=== PATIENT | female | born 1930 | race Caucasian/White ===

== ENCOUNTER 2018-03-16 15:53 | Emergency (ER) | payer MEDICARE, OTHER ==
[~2018-03-16] VITALS: Ht 157.5 cm; Wt 41.4 kg
[~2018-03-16 15:53] MED LIST: AMIODARONE400 MG PO; AMITRIPTYLINE H50 MG PO; AMOXICILLIN875 MG PO; ASPIRIN LOW DOS81 M2 PO; BACTRIM DS1 TAB PO; CALCIUM + D600 MG PO; CRESTOR20 MG PO; GLIMEPIRIDE2 MG PO; JANUVIA50 MG PO; KEFLEX500 M1 PO; KEFLEX500 MG PO; LANOXIN0.25 MG PO; METFORMIN500 MG PO; METOPROL TAR25 M1 PO; PRADAXA150 MG PO; PRILOSEC20 MG PO; RANITIDINE150 M1 PO; ROBAXIN-750750 MG PO; SYNTHROID50 MCG PO; TRAMADOL HCL50 MG PO; TYLENOL # 31 TAB PO; VOLTAREN1%GEL TOP
[2018-03-16] MEDS ORDERED: ATORVASTATIN CA20 MG PO (16:42)
[2018-03-16] MEDS ORDERED: DIGOXIN0.125 MG PO (16:43)
[2018-03-16] MEDS ORDERED: JANUVIA50 MG PO (16:52)
[2018-03-16] MEDS ORDERED: GABAPENTIN100 MG PO (16:52)
[2018-03-16] MEDS ORDERED: METFORMIN500 MG PO (16:53)
[2018-03-16] MEDS ORDERED: PRADAXA150 MG PO (16:55)
[2018-03-16] MEDS ORDERED: [UNRECOGNIZED DRUG - OTHER] PO (16:56)
[2018-03-16 16:57] LABS: HEMATOCRIT 43.9 % (37.0-47.0); HEMOGLOBIN 14.2 g/dl (12.0-16.0); IMMATURE GRANULOCYTES 0.2 % (0.0-5.0); MEAN CELL VOLUME 92.2 fL CALC (80.0-100.0); MEAN CORPUSCULAR HGB 29.8 pG CALC (26.0-32.0); MEAN CORPUSCULAR HGB CONC 32.3 g/L CALC (32.0-36.0); NEUT# 3.22 thou/uL (2.00-7.15); RED BLOOD COUNT 4.76 mill/uL (4.20-5.60); RED CELL DISTRI WIDTH 14.3 % (11.5-15.5)
[2018-03-16 17:19] LABS: ALBUMIN 4.2 g/dL (3.2-5.0); ALKALINE PHOSPHATASE 89 u/l (38-126); ANION GAP 17 (6-22 (CALC)); BILIRUBIN, TOTAL 0.7 mg/dL (0.0-1.4); BUN 22 mg/dL (8-23); BUN/CREATININE RATIO 24 (12-20 (CALC)); CARBON DIOXIDE 27 mmol/l (22-30); CHLORIDE 99 mmol/l (95-108); CREATININE 0.9 mg/dL (0.5-1.0); GFR 59 ML/MIN (>=60 (CALC)); GFR FOR AFR.AMER. > 60 ML/MIN (>=60 (CALC)); POTASSIUM 4.1 mmol/l (3.5-5.1); SGOT/AST 26 u/l (9-36); SODIUM 139 mmol/l (137-146); TOTAL PROTEIN 7.4 g/dL (6.3-8.2)
[2018-03-16 18:39] LABS: URINE BILIRUBIN - DIPSTICK NEGATIVE (NEGATIVE); URINE BLOOD DIPSTICK NEGATIVE (NEGATIVE); URINE COLOR YELLOW; URINE GLUCOSE - DIPSTICK NEGATIVE (NEGATIVE); URINE KETONE TRACE mg/dL (NEGATIVE); URINE LEUK ESTERASE NEGATIVE (NEGATIVE); URINE NITRITE - DIPSTICK NEGATIVE (Negative); URINE PH 5.5 (4.5-8.0); URINE PROTEIN - DIPSTICK TRACE mg/dL (NEG-TRACE); URINE SPECIFIC GRAVITY >=1.030; URINE UROBILINOGEN - DIPSTICK 0.2 E.U./dL (0.2)
[2018-03-16 18:42] LABS: DIGOXIN < 0.4 ng/mL (0.8-2.0)
[2018-03-16] MEDS ORDERED: PROVENTIL108 MCG/AC IN (18:52)
[2018-03-16] MEDS ORDERED: ZITHROMAX250 MG PO (18:52)
[2018-03-16 19:15] VITALS: BP 104/69
== END 2018-03-16 19:20 | disposition home or self-care (01) ==
LOC: ED 15:53
PROVIDERS: Emergency Medicine
DX: J06.9 Acute upper respiratory infection, unspecified (principal); E11.9 Type 2 diabetes mellitus without complications; E03.9 Hypothyroidism, unspecified; M19.90 Unspecified osteoarthritis, unspecified site; E78.5 Hyperlipidemia, unspecified

== ENCOUNTER → 2018-05-02 | Outpatient (REF) | payer MEDICARE, OTHER ==
[~2018-05-02] MED LIST changes: +ATORVASTATIN CA20 MG PO; +DIGOXIN0.125 MG PO; +GABAPENTIN100 MG PO; +PROVENTIL108 MCG/AC IN; +ZITHROMAX250 MG PO; +[UNRECOGNIZED DRUG - OTHER] PO
[2018-05-02 08:13] LABS: HEMATOCRIT 39.1 % (37.0-47.0); MEAN CELL VOLUME 96.3 fL CALC (80.0-100.0); MEAN CORPUSCULAR HGB CONC 31.2 g/L CALC (32.0-36.0); RED BLOOD COUNT 4.06 mill/uL (4.20-5.60); RED CELL DISTRI WIDTH 14.4 % (11.5-15.5)
[2018-05-02 08:15] LABS: HEMOGLOBIN 12.2 g/dl (12.0-16.0)
[2018-05-02 08:53] LABS: ALBUMIN 3.6 g/dL (3.2-5.0); ALKALINE PHOSPHATASE 87 u/l (38-126); ANION GAP 11 (6-22 (CALC)); BILIRUBIN, TOTAL 0.3 mg/dL (0.0-1.4); BUN 14 mg/dL (8-23); BUN/CREATININE RATIO 17 (12-20 (CALC)); CALCULATED LDLCHOLESTEROL 59 mg/dL (62-129 (CALC)); CARBON DIOXIDE 28 mmol/l (22-30); CHLORIDE 105 mmol/l (95-108); CHOLESTEROL HDL RATIO 2.9 (<4.4 (CALC)); CREATININE 0.8 mg/dL (0.5-1.0); GFR > 60 ML/MIN (>=60 (CALC)); GFR FOR AFR.AMER. > 60 ML/MIN (>=60 (CALC)); HDL CHOLESTEROL 52 mg/dL (>=40); POTASSIUM 4.1 mmol/l (3.5-5.1); SGOT/AST 20 u/l (9-36); SODIUM 141 mmol/l (137-146); TOTAL CHOLESTEROL 149 mg/dl (0-199); TOTAL PROTEIN 6.5 g/dL (6.3-8.2); TOTAL TRIGLYCERIDES 191 mg/dl (30-149); VLDL CHOLESTROL 38 mg/dl (0-48 (CALC))
== END | disposition home or self-care (01) ==
LOC: LAB 07:54
PROVIDERS: ATTEND Nurse Practitioner
DX: E03.9 Hypothyroidism, unspecified (principal); E11.42 Type 2 diabetes mellitus with diabetic polyneuropathy; E78.49 Other hyperlipidemia; I10 Essential (primary) hypertension

== ENCOUNTER 2018-09-03 15:17 | Inpatient (IN) | payer MEDICARE, OTHER ==
[~2018-09-03] VITALS: Ht 157.5 cm; Wt 42.0 kg
[2018-09-03 16:24] LABS: HEMATOCRIT 38.2 % (37.0-47.0); HEMOGLOBIN 12.3 g/dl (12.0-16.0); IMMATURE GRANULOCYTES 0.2 % (0.0-5.0); MEAN CORPUSCULAR HGB 29.6 pG CALC (26.0-32.0); MEAN CORPUSCULAR HGB CONC 32.2 g/L CALC (32.0-36.0); NEUT# 6.76 thou/uL (2.00-7.15); RED BLOOD COUNT 4.15 mill/uL (4.20-5.60); RED CELL DISTRI WIDTH 13.9 % (11.5-15.5)
[2018-09-03 16:37] LABS: ANION GAP 17 (6-22 (CALC)); BUN 11 mg/dL (8-23); BUN/CREATININE RATIO 18 (12-20 (CALC)); CARBON DIOXIDE 26 mmol/l (22-30); CHLORIDE 96 mmol/l (95-108); CREATININE 0.6 mg/dL (0.5-1.0); GFR > 60 ML/MIN (>=60 (CALC)); GFR FOR AFR.AMER. > 60 ML/MIN (>=60 (CALC)); POTASSIUM 4.1 mmol/l (3.5-5.1); SODIUM 135 mmol/l (137-146)
[2018-09-03] MEDS ORDERED: LUMIGAN0.01 % OU (17:01)
[2018-09-03] MEDS ORDERED: LEVOTHYROXIN75 MCG PO (17:06)
[2018-09-03 19:55] VITALS: BP 141/71
[2018-09-04 00:32] VITALS: BP 96/52
[2018-09-04 03:59] VITALS: BP 107/64
[2018-09-04 08:05] VITALS: BP 104/63
[2018-09-04 16:00] VITALS: BP 90/50
[2018-09-04 19:35] VITALS: BP 113/64
[2018-09-05 04:30] VITALS: BP 109/67
[2018-09-05 05:10] LABS: HEMATOCRIT 33.2 % (37.0-47.0); HEMOGLOBIN 10.7 g/dl (12.0-16.0); IMMATURE GRANULOCYTES 0.6 % (0.0-5.0); MEAN CELL VOLUME 93.8 fL CALC (80.0-100.0); MEAN CORPUSCULAR HGB 30.2 pG CALC (26.0-32.0); MEAN CORPUSCULAR HGB CONC 32.2 g/L CALC (32.0-36.0); NEUT# 2.74 thou/uL (2.00-7.15); RED BLOOD COUNT 3.54 mill/uL (4.20-5.60); RED CELL DISTRI WIDTH 13.9 % (11.5-15.5)
[2018-09-05 05:14] LABS: ALKALINE PHOSPHATASE 64 u/l (38-126); BILIRUBIN, TOTAL 0.3 mg/dL (0.0-1.4); BUN 9 mg/dL (8-23); BUN/CREATININE RATIO 13 (12-20 (CALC)); CARBON DIOXIDE 27 mmol/l (22-30); CREATININE 0.7 mg/dL (0.5-1.0); GFR > 60 ML/MIN (>=60 (CALC)); GFR FOR AFR.AMER. > 60 ML/MIN (>=60 (CALC)); MAGNESIUM 1.6 mg/dL (1.6-2.3); POTASSIUM 3.7 mmol/l (3.5-5.1); SODIUM 140 mmol/l (137-146); TOTAL PROTEIN 5.5 g/dL (6.3-8.2)
[2018-09-05 05:22] LABS: ANION GAP 9 (6-22 (CALC)); CHLORIDE 108 mmol/l (95-108); SGOT/AST 33 u/l (9-36)
[2018-09-05 07:34] VITALS: BP 111/60
[2018-09-05 15:33] VITALS: BP 122/78
[2018-09-05 19:00] VITALS: BP 121/67
[2018-09-06 04:40] VITALS: BP 123/77
[2018-09-06 05:57] LABS: HEMATOCRIT 33.7 % (37.0-47.0); HEMOGLOBIN 10.9 g/dl (12.0-16.0); IMMATURE GRANULOCYTES 0.6 % (0.0-5.0); MEAN CELL VOLUME 93.4 fL CALC (80.0-100.0); MEAN CORPUSCULAR HGB 30.2 pG CALC (26.0-32.0); MEAN CORPUSCULAR HGB CONC 32.3 g/L CALC (32.0-36.0); NEUT# 2.66 thou/uL (2.00-7.15); RED BLOOD COUNT 3.61 mill/uL (4.20-5.60); RED CELL DISTRI WIDTH 13.8 % (11.5-15.5)
[2018-09-06 06:04] LABS: ALBUMIN 3.1 g/dL (3.2-5.0); ALKALINE PHOSPHATASE 61 u/l (38-126); ANION GAP 8 (6-22 (CALC)); BILIRUBIN, TOTAL 0.2 mg/dL (0.0-1.4); BUN 11 mg/dL (8-23); BUN/CREATININE RATIO 14 (12-20 (CALC)); CARBON DIOXIDE 29 mmol/l (22-30); CHLORIDE 107 mmol/l (95-108); CREATININE 0.8 mg/dL (0.5-1.0); GFR > 60 ML/MIN (>=60 (CALC)); GFR FOR AFR.AMER. > 60 ML/MIN (>=60 (CALC)); MAGNESIUM 1.7 mg/dL (1.6-2.3); POTASSIUM 3.7 mmol/l (3.5-5.1); SGOT/AST 20 u/l (9-36); SODIUM 140 mmol/l (137-146); TOTAL PROTEIN 5.7 g/dL (6.3-8.2)
[2018-09-06 08:11] VITALS: BP 126/69
[2018-09-06 08:17] VITALS: BP 126/69
[2018-09-06] MEDS ORDERED: DOXYCYCL HYC100 MG PO (13:09)
== END 2018-09-06 13:51 | disposition home or self-care (01) | DRG 603 ==
LOC: ED 15:17 → ED-I 15:33 → ED 18:07 → MS2 18:08
PROVIDERS: Family Medicine; ADMIT Internal Medicine; ATTEND Internal Medicine Nephrology
DX: L03.114 Cellulitis of left upper limb (principal); S40.812A Abrasion of left upper arm, initial encounter; E11.40 Type 2 diabetes mellitus with diabetic neuropathy, unspecified; I48.2 Chronic atrial fibrillation; E78.5 Hyperlipidemia, unspecified; M19.90 Unspecified osteoarthritis, unspecified site; E03.9 Hypothyroidism, unspecified; K21.9 Gastro-esophageal reflux disease without esophagitis; W55.03XA Scratched by cat, initial encounter; Y92.009 Unspecified place in unspecified non-institutional (private) residence as the place of occurrence of the external cause; Z79.84 Long term (current) use of oral hypoglycemic drugs; Z79.01 Long term (current) use of anticoagulants
CPT/HCPCS: G0378